=== PATIENT | female | born 1980 | race Caucasian/White ===

== ENCOUNTER 2018-12-26 13:20 | Emergency (ER) | payer OTHER ==
[~2018-12-26] VITALS: Ht 172.7 cm; Wt 91.6 kg
[2018-12-26 13:44] VITALS: BP 116/78; Ht 172.7 cm; Wt 91.6 kg
== END 2018-12-26 14:37 | disposition home or self-care (01) ==
LOC: ED 13:20
DX: S52.571A Other intraarticular fracture of lower end of right radius, initial encounter for closed fracture (principal); Z90.710 Acquired absence of both cervix and uterus; Z98.890 Other specified postprocedural states; W01.0XXA Fall on same level from slipping, tripping and stumbling without subsequent striking against object, initial encounter; Y93.89 Activity, other specified; Y92.89 Other specified places as the place of occurrence of the external cause; Y99.8 Other external cause status
CPT/HCPCS: A4570; Q0092

== ENCOUNTER 2019-03-14 15:51 | Emergency (ER) | payer OTHER ==
[~2019-03-14] VITALS: Ht 172.7 cm; Wt 93.9 kg
[2019-03-14 16:08] VITALS: BP 127/81; Ht 172.7 cm; Wt 93.9 kg
== END 2019-03-14 18:09 | disposition home or self-care (01) ==
LOC: ED 15:51
DX: M79.604 Pain in right leg (principal); R25.2 Cramp and spasm; Z98.890 Other specified postprocedural states; Z90.712 Acquired absence of cervix with remaining uterus